=== PATIENT | female | born 1965 | race Caucasian/White ===

== ENCOUNTER → 2017-11-01 | Outpatient (CLI) | payer OTHER | LOC: M RAD 11:16 | DX: Z12.31 Encounter for screening mammogram for malignant neoplasm of breast (principal); R59.0 Localized enlarged lymph nodes | CPT/HCPCS: 77066 ==

== ENCOUNTER → 2017-11-12 | Outpatient (CLI) | payer OTHER ==
[~2017-11-12] MED LIST: LIDOCAINE 1% MDV 20ML VIAL As Ordered
== END ==
LOC: M RADPRO 11:39
DX: R92.0 Mammographic microcalcification found on diagnostic imaging of breast (principal); N60.91 Unspecified benign mammary dysplasia of right breast; N60.01 Solitary cyst of right breast; Z79.899 Other long term (current) drug therapy; Z88.8 Allergy status to other drugs, medicaments and biological substances
CPT/HCPCS: 19081

== ENCOUNTER 2018-01-10 07:48 | Day surgery (SDC) | payer OTHER ==
[2018-01-10] MEDS: NS 1,000 ML IV (08:00)
[2018-01-10] MEDS ORDERED: PROPOFOL 200 MG/20 ML VIAL As Ordered (08:30)
[2018-01-10] MEDS ORDERED: LIDOCAINE 2% INJ 100 MG/5 ML SDV (FOR ANES.) As Ordered (08:30)
[2018-01-10] MEDS ORDERED: fentaNYL 100 MCG/2 ML INJECTION (J3010) As Ordered (08:47)
== END 2018-01-10 10:02 | disposition home or self-care (01) ==
LOC: M OPP 07:48
DX: Z12.11 Encounter for screening for malignant neoplasm of colon (principal); K64.0 First degree hemorrhoids; K63.5 Polyp of colon; K22.8 Other specified diseases of esophagus; K44.9 Diaphragmatic hernia without obstruction or gangrene; R10.13 Epigastric pain; M12.9 Arthropathy, unspecified; K21.9 Gastro-esophageal reflux disease without esophagitis; R51 Headache; R06.83 Snoring; Z91.89 Other specified personal risk factors, not elsewhere classified; Z87.891 Personal history of nicotine dependence; Z98.890 Other specified postprocedural states; Z86.19 Personal history of other infectious and parasitic diseases
CPT/HCPCS: 45385

== ENCOUNTER 2019-03-04 03:43 | Emergency (ER) | payer OTHER ==
[~2019-03-04] VITALS: Ht 160 cm; Wt 79.5 kg
[~2019-03-04 03:43] MED LIST changes: -LIDOCAINE 1% MDV 20ML VIAL As Ordered; +MULT1TAB10 PO
[2019-03-04 04:21] LABS: BASO # 0.1 10^3/uL (0.0-0.2); BASO % 0.8 % (0.0-1.0); EOS # 0.3 10^3/uL (0.0-0.50); EOS % 4.2 % (0.0-3.0); HEMATOCRIT 37.2 % (36.0-47.0); HEMOGLOBIN 12.7 g/dl (12.0-15.5); LYMPH # 2.5 10^3/uL (1.5-4.5); LYMPH % 39.7 % (24.0-44.0); MEAN CORPUSCULAR HEMOGLOBIN 32.6 pg (27.0-33.0); MEAN CORPUSCULAR HGB CONC 34.1 g/dl (32.0-36.5); MEAN CORPUSCULAR VOLUME 95.6 fl (80.0-96.0); MONO # 0.5 10^3/uL (0.0-0.8); MONO % 7.2 % (0.0-5.0); NEUTROPHILS % 47.8 % (36.0-66.0); PLATELET COUNT, AUTOMATED 287 10^3/uL (150-450); RED BLOOD COUNT 3.89 10^6/uL (4.00-5.40); WHITE BLOOD COUNT 6.2 10^3/uL (4.0-10.0)
[2019-03-04 04:51] LABS: BLOOD UREA NITROGEN 14 MG/DL (7-18); CALCIUM LEVEL 8.4 MG/DL (8.5-10.1); CARBON DIOXIDE LEVEL 24 MEQ/L (21-32); CHLORIDE LEVEL 111 MEQ/L (98-107); CK-MB VALUE MASS 2.9 NG/ML (<3.6); CPK CREATINE PHOSPHOKINASE 358 U/L (26-192); CREATININE FOR GFR 0.79 MG/DL (0.55-1.30); GLOMERULAR FILTRATION RATE > 60.0 (>51); GLUCOSE, FASTING 102 MG/DL (70-100); MB/CK RELATIVE INDEX 0.81 (< OR =4); POTASSIUM SERUM 4.1 MEQ/L (3.5-5.1); SODIUM LEVEL 142 MEQ/L (136-145); TROPONIN I < 0.02 NG/ML (< 0.10)
[2019-03-04] MEDS ORDERED: NS 1,000 ML IV ONE (05:15)
[2019-03-04] MEDS ORDERED: KETOROLAC 30 MG/ML VIAL (J1885) IV ONE (05:15)
[2019-03-04] MEDS ORDERED: dexameTHASONE 20 MG/5 ML VIAL (J1100) IV ONE (05:15)
[2019-03-04] MEDS ORDERED: ISOVUE-370 76% 100ML VIAL (Q9967) As Ordered ONE (05:22)
--- NOTE | 2019-03-04 06:02 | REPVR ---
EXAM: CT Angiography Chest With Contrast EXAM DATE/TIME: 03/04/19 (5:07am) CLINICAL HISTORY: 53 year old female with chest pain TECHNIQUE: Imaging protocol: Axial computed tomographic angiography images of the chest with intravenous contrast using CT angiography protocol. Coronal and sagittal reformatted images were created and reviewed. 3D rendering: MIP reconstructed images were created and reviewed. Radiation optimization: All CT scans at this facility use at least one of these dose optimization techniques: automated exposure control; mA and/or kV adjustment per patient size (includes targeted exams where dose is matched to clinical indication); or iterative reconstruction. Contrast material: Iso Contrast volume: 75 ml Contrast route: Antecubital vein COMPARISON: Portable CXR of 03/04/19 FINDINGS: Pulmonary arteries: Normal. No pulmonary emboli. Aorta: Unremarkable. No aortic aneurysm. No aortic dissection. Lungs: Unremarkable. No consolidation. No masses. Pleural space: No pneumothorax. Minimal left pleural effusion. Heart: Unremarkable. No cardiomegaly. No pericardial effusion. Lymph nodes: Unremarkable. No enlarged lymph nodes. Bones/joints: Unremarkable. No acute fracture. Soft tissues: Unremarkable. Upper abdomen: Contracted gallbladder. Small hiatal hernia. IMPRESSION: No acute findings. No filling defects suspicious for pulmonary emboli are seen. There is no CT evidence of aortic dissection nor leakage. No aortic aneurysm is appreciated. Electronically signed by: Janice Roblero On 03/04/2019 06:01:58 AM
[2019-03-04 06:15] VITALS: BP 115/61
[2019-03-04] MEDS ORDERED: KETO10TAB PO (06:52)
[2019-03-04] MEDS ORDERED: PRED20TA PO (06:52)
--- NOTE | 2019-03-04 07:07 | REP ---
Clinical: Acute chest pain . Comparison: 11/17/2010 . Findings: The mediastinum and cardiac silhouette are stable and within normal limits for portable technique. The lung albrecht are clear without acute consolidation, effusion, or pneumothorax. Skeletal structures are intact. Impression: No acute cardiopulmonary process appreciated. Electronically Signed by Manuelito John MD 03/04/2019 06:59 A
--- NOTE | 2019-03-04 11:21 | ECGEPIP ---
[facility] - ED Test Date: 2019-03-04 Pat Name: RITA CAMACHO Department: Room: - Gender: Female Administrative Aide: gabriela : [id number] Requested By: REJI AVILA Order Number: [id number] Reading MD: Aniya Omer Measurements Intervals [place] Rate: 81 P: 58 AK: 170 QRS: 16 QRSD: 90 T: 36 QT: 377 QTc: 440 Interpretive Statements SINUS RHYTHM NSTTW abnormalities No prior Electronically Signed on 03-04-2019 11:21:16 EDT by Aniya Omer
== END 2019-03-04 08:00 | disposition home or self-care (01) ==
LOC: M ED 03:43
DX: R07.1 Chest pain on breathing (principal); Z88.8 Allergy status to other drugs, medicaments and biological substances; Z87.891 Personal history of nicotine dependence
CPT/HCPCS: 36415; 64420; 71045; 71275; 80048; 82550; 82553; 84439; 84443; 84484; 85025; 93005; 93041; 94760; 96374; 96375; 99285; J1100; J1885; Q9967

== ENCOUNTER → 2019-09-28 | Outpatient (CLI) | payer OTHER ==
[~2019-09-28] MED LIST changes: +KETO10TAB PO; +PRED20TA PO
--- NOTE | 2019-09-28 14:10 | REP ---
HIDA SCAN WITH GALLBLADDER EJECTION FRACTION: Following the intravenous administration of 6.6 mCi of technetium-99m mebrofenin, multiple images of the right upper quadrant are performed every 5 minutes for a period of 1 hour. Gallbladder is visualized at 10 minutes postinjection. Biliary to bowel transit is seen at 60 minutes postinjection. There is no scintigraphic evidence of cholecystitis. At the 1 hour titus 8 ounces of Ensure Enlive are ingested and further imaging performed for 1 hour. Gallbladder activity is measured. The gallbladder ejection fraction is calculated to be 92% which is normal. IMPRESSION: Normal gallbladder ejection fraction. Electronically Signed by Moose Cerda MD 09/29/2019 12:32 P
== END ==
LOC: M RAD 08:26
PROVIDERS: ATTEND Student in an Organized Health Care Education/Training Program
DX: R10.9 Unspecified abdominal pain (principal)

== ENCOUNTER → 2020-04-26 | Outpatient (CLI) | payer OTHER ==
--- NOTE | 2020-05-14 15:49 | REP ---
LEFT FOOT RADIOGRAPH: HISTORY: Contusion. TECHNIQUE: AP, lateral, bilateral oblique views of the left foot. FINDINGS: The osseous structures, joint spaces and surrounding soft tissues are age appropriate. No acute fracture or dislocation. No subcutaneous emphysema or foreign body. IMPRESSION: No acute fracture or dislocation. MTDD
--- NOTE | 2020-05-14 15:50 | REP ---
LEFT ANKLE SERIES: HISTORY: Contusion. TECHNIQUE: AP, lateral, bilateral oblique views of the left ankle. FINDINGS: No acute fracture or dislocation. Skeletal structures, joint spaces and surrounding soft tissues are normal. The ankle mortise is intact. No subcutaneous emphysema or foreign body. IMPRESSION: Age appropriate left ankle radiographs. No acute fracture or dislocation. MTDD
== END ==
LOC: M WUC 11:11
PROVIDERS: ATTEND Physician Assistant
DX: S90.02XA Contusion of left ankle, initial encounter (principal); S90.32XA Contusion of left foot, initial encounter

== ENCOUNTER → 2020-10-09 | Outpatient (CLI) | payer OTHER ==
--- NOTE | 2020-10-09 09:44 | REP ---
INDICATION: SCIATICA COMPARISON: None. TECHNIQUE: AP, lateral, bilateral oblique, and coned-down views of the lumbar spine. FINDINGS: Patient is status post laminectomy and posterior fixation at L4-S1. Alignment and lordosis maintained. No evidence for acute fracture/compression injury or subluxation. Endplate sclerosis and disc space narrowing at L2-3 and L3-4 noted. IMPRESSION: Degenerative changes as above. <Electronically signed by Manuelito John > 10/09/20 0922
== END ==
LOC: M WUC 08:36
PROVIDERS: ATTEND Physician Assistant
DX: M54.32 Sciatica, left side (principal)